=== PATIENT | male | born 1990 | race Caucasian/White ===

== ENCOUNTER 2016-03-25 13:25 | Emergency (ER) | payer MEDICAID ==
[~2016-03-25] VITALS: Ht 172.7 cm; Wt 97.5 kg
[2016-03-25 13:31] VITALS: BP 166/97
--- NOTE | 2016-03-25 14:16 | NUR ---
PT TO BED 5 AT THIS TIME,
--- NOTE | 2016-03-25 14:26 | NUR ---
PATIENT PRESENTS TO ED WITH ANXIETY . PT STATES HE BEGAN FEELING SOB X1WEEK AGO AFTER TRYING COCAINE WITH MARIJUANA. PT REPORTS FEELING INTERMITTENT TINGLING IN LEFT SHOULDER. PT STATED HE VISITED [facility] X2DAYS AGO AND WAS DX WITH ANXIETY AND GIVEN ATIVAN BUT HAS SINCE RAN OUT AND TOOK HIS MOMS DEPRESSION MEDICATION (M22) WHICH ONLY MADE HIS SYMPTOMS WORSE. PT STATES THE ATIVAN RELIEVED HIS SYMPTOMS AND SYMPTOMS FEEL WORSENING WHEN DEEP BREATHING. NO MEDICAL HX REPORTED . DENIES N/V/D; SKIN IS PINK/WARM/DRY; AAOX4 WITH EVEN AND STEADY GAIT; LUNGS CLEAR BL; HR EVEN AND REGULAR; PT DENIES ANY FEVER, CP, OR COUGH AT THIS TIME; PATIENT STATES PAIN OF 0/10 AT THIS TIME; VSS; PATIENT POSITIONED FOR COMFORT; HOB ELEVATED; BEDRAILS UP X2; BED DOWN. ER MD MADE AWARE OF PT STATUS.
[2016-03-25 15:26] VITALS: BP 144/88
== END 2016-03-25 15:27 | disposition home or self-care (01) ==
LOC: MED 13:25
DX: F41.9 Anxiety disorder, unspecified (principal); F14.10 Cocaine abuse, uncomplicated

== ENCOUNTER 2016-03-30 19:44 | Emergency (ER) | payer MEDICAID ==
[~2016-03-30] VITALS: Ht 172.7 cm; Wt 97.1 kg
[2016-03-30 19:48] VITALS: BP 159/95
--- NOTE | 2016-03-30 20:10 | NUR ---
PT SEEN BY IN OF2.
[2016-03-30] MEDS ORDERED: LORazepam 1 MG TAB PO ONE (20:45)
--- NOTE | 2016-03-30 20:55 | NUR ---
AMBULATED TO ER OF2
--- NOTE | 2016-03-30 20:57 | NUR ---
Barbara niño in [facility] - 03/30/16 at 2235 by MEDKLAUDIA Patient being evaluated by physician.
--- NOTE | 2016-03-30 21:45 | NUR ---
OK TO D/C PT PER MD
--- NOTE | 2016-03-30 21:53 | NUR ---
PATIENT PRESENTS TO ED WITH ANXIETY . PT DENIES N/V/D; SKIN IS PINK/WARM/DRY; AAOX4 WITH EVEN AND STEADY GAIT; LUNGS CLEAR BL; HR EVEN AND REGULAR; PT DENIES ANY FEVER, CP, SOB, OR COUGH AT THIS TIME; PATIENT STATES PAIN OF 0/10 AT THIS TIME; VSS; PATIENT POSITIONED FOR COMFORT; HOB ELEVATED; BEDRAILS UP X2; BED DOWN. ER MD MADE AWARE OF PT STATUS.
[2016-03-30 21:55] VITALS: BP 145/89
--- NOTE | 2016-03-30 21:58 | NUR ---
MED APPEARED TO GIVE AFTER PT DISCHARGED. MED NOT GIVEN, PT HAS RX FOR ATIVAN.
== END 2016-03-30 21:45 | disposition home or self-care (01) ==
LOC: MED 19:44
DX: F41.9 Anxiety disorder, unspecified (principal); R06.00 Dyspnea, unspecified

== ENCOUNTER 2016-04-02 08:54 | Emergency (ER) | payer MEDICAID ==
[~2016-04-02] VITALS: Ht 172.7 cm; Wt 97.1 kg
[2016-04-02 09:02] VITALS: BP 146/91
--- NOTE | 2016-04-02 09:13 | NUR ---
PT TO BED 6 AT THIS TIME
--- NOTE | 2016-04-02 09:15 | NUR ---
26/M C/O ANXIETYX 2 WKS. PT DENIES N/V/D; SKIN IS PINK/WARM/DRY; AAOX4 WITH EVEN AND STEADY GAIT; LUNGS CLEAR BL; HR EVEN AND REGULAR; PT DENIES ANY FEVER, CP, SOB, OR COUGH AT THIS TIME; PATIENT STATES PAIN OF 0/10 AT THIS TIME; VSS; PATIENT POSITIONED FOR COMFORT; HOB ELEVATED; BEDRAILS UP X2; BED DOWN. ER MD MADE AWARE OF PT STATUS.
--- NOTE | 2016-04-02 09:31 | NUR ---
Note [place] in EDM - 04/02/16 at 0936 by [facility] Patient discharged with v/s stable. Written and verbal after care instructions given and explained to parent/guardian. Parent/Guardian verbalized understanding. Carriedby parent. All questions addressed prior to discharge. Advised to follow up with PMD.
--- NOTE | 2016-04-02 10:17 | NUR ---
Patient appears to be resting comfortably in bed. Vital Signs within normal limits. Respirations even and unlabored. WILL CONTINUE TO MONITOR
--- NOTE | 2016-04-02 10:25 | NUR ---
DR COOLEY EVALUATING PT AT BEDSIDE
[2016-04-02 10:54] VITALS: BP 132/79
== END 2016-04-02 10:54 | disposition home or self-care (01) ==
LOC: MED 08:54
DX: F41.9 Anxiety disorder, unspecified (principal); I10 Essential (primary) hypertension

== ENCOUNTER 2018-03-05 13:55 | Emergency (ER) | payer MEDICAID ==
[~2018-03-05] VITALS: Ht 172.7 cm; Wt 102.1 kg
[2018-03-05 14:25] VITALS: BP 147/110
--- NOTE | 2018-03-05 15:00 | NUR ---
PATIENT AMBULATED TO ER BED 10
--- NOTE | 2018-03-05 15:05 | NUR ---
BIB SELF C/O ABSCESS X 5 DAYS. PT STATES HE NEED ABSCESS CLEAN OUT AND CHANGED. DENIES ANY OTHER SYMPTOMS AT THIS TIME. POSITIONED FOR COMFORT.
--- NOTE | 2018-03-05 15:15 | NUR ---
DR DUBOIS AT BEDSIDE.
--- NOTE | 2018-03-05 15:31 | NUR ---
Patient discharged with v/s stable. Written and verbal after care instructions given and explained. Patient verbalized understanding. Ambulatory with steady gait. All questions addressed prior to discharge. Advised to follow up with PMD.
[2018-03-05 15:34] VITALS: BP 147/110
== END 2018-03-05 15:31 | disposition home or self-care (01) ==
LOC: MED 13:55
DX: L02.11 Cutaneous abscess of neck (principal); I10 Essential (primary) hypertension; F41.9 Anxiety disorder, unspecified
CPT/HCPCS: 99283

== ENCOUNTER 2018-06-16 16:12 | Emergency (ER) | payer MEDICAID ==
[~2018-06-16] VITALS: Ht 172.7 cm; Wt 108.5 kg
[2018-06-16 16:20] VITALS: BP 143/75
--- NOTE | 2018-06-16 16:22 | NUR ---
PT AMBULATED TO ER BED 01
--- NOTE | 2018-06-16 16:29 | NUR ---
C/O ABSCESS ON LEFT UPPER THIGH. PATIENT STATES PAIN OF 7/10 AT THIS TIME. PATIENT POSITIONED FOR COMFORT; HOB ELEVATED; BEDRAILS UP X2; BED DOWN. ER MD MADE AWARE OF PT STATUS.
[2018-06-16] MEDS ORDERED: KETOROLAC 60 MG/2 ML VIAL IM ONE (17:10)
[2018-06-16] MEDS ORDERED: cefTRIAXone 1,000 MG in LIDOCAINE MPF 1% - 5 mL VIAL 2.1 ML IM ONE (18:25)
--- NOTE | 2018-06-16 18:47 | NUR ---
Patient discharged with v/s stable. Written and verbal after care instructions given and explained. Patient alert, oriented and verbalized understanding of instructions. Ambulatory with steady gait. All questions addressed prior to discharge. ID band removed. Patient advised to follow up with PMD. Rx of BACTRIM,KEFLEX,IBUPROFEN & NORCO given. Patient educated on indication of medication including possible reaction and side effects. Opportunity to ask questions provided and answered.
[2018-06-16 18:48] VITALS: BP 134/75
== END 2018-06-16 18:47 | disposition home or self-care (01) ==
LOC: MED 16:12
DX: L03.116 Cellulitis of left lower limb (principal); I10 Essential (primary) hypertension
CPT/HCPCS: 96372; 99283; J0696; J1885; J2001

== ENCOUNTER 2018-12-30 15:58 | Emergency (ER) | payer MEDICAID ==
[~2018-12-30] VITALS: Ht 172.7 cm; Wt 94.3 kg
[2018-12-30 16:09] VITALS: BP 132/77
--- NOTE | 2018-12-30 16:15 | NUR ---
PT AMBULATED TO BED 08
--- NOTE | 2018-12-30 16:29 | NUR ---
Patient taken to XRAY via wheelchair by tech.
[2018-12-30] MEDS ORDERED: ACETAMINOPHEN EXTRA STRENGTH 500 MG TAB PO ONE (16:30)
[2018-12-30] MEDS ORDERED: hydrOXYzine HCL 10 MG TAB PO ONE (16:30)
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
[2018-12-30 17:20] VITALS: BP 121/67
--- NOTE | 2018-12-30 17:20 | NUR ---
Patient discharged with v/s stable. Written and verbal after care instructions given and explained. Patient alert, oriented and verbalized understanding of instructions. Ambulatory with steady gait. All questions addressed prior to discharge. ID band removed. Patient advised to follow up with PMD. Rx of NAPROXEN AND ATARAX given. Patient educated on indication of medication including possible reaction and side effects. Opportunity to ask questions provided and answered.
== END 2018-12-30 17:20 | disposition home or self-care (01) ==
LOC: MED 15:58
DX: S46.812A Strain of other muscles, fascia and tendons at shoulder and upper arm level, left arm, initial encounter (principal); S20.20XA Contusion of thorax, unspecified, initial encounter; F17.210 Nicotine dependence, cigarettes, uncomplicated; F41.9 Anxiety disorder, unspecified; I10 Essential (primary) hypertension; V49.49XA Driver injured in collision with other motor vehicles in traffic accident, initial encounter; Y93.89 Activity, other specified; Y92.89 Other specified places as the place of occurrence of the external cause; Y99.8 Other external cause status
CPT/HCPCS: 71101; 99283; Q0092

== ENCOUNTER 2019-01-24 10:24 | Emergency (ER) | payer MEDICAID ==
[~2019-01-24] VITALS: Ht 172.7 cm; Wt 93.0 kg
[2019-01-24 10:29] VITALS: BP 159/91
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
--- NOTE | 2019-01-24 10:55 | NUR ---
X-Ray at bedside.
[2019-01-24 11:45] VITALS: BP 159/91
--- NOTE | 2019-01-24 11:45 | NUR ---
APPLIED SLING TO LEFT SHOULDER WITHOUT ANY ISSUES
--- NOTE | 2019-01-24 11:45 | NUR ---
Patient discharged with v/s stable. Written and verbal after care instructions given and explained. Patient alert, oriented and verbalized understanding of instructions. Ambulatory with steady gait. All questions addressed prior to discharge. ID band removed. Patient advised to follow up with PMD. Rx of BACITRACIN, MOTRIN, NORCO given. Patient educated on indication of medication including possible reaction and side effects. Opportunity to ask questions provided and answered.
== END 2019-01-24 11:45 | disposition home or self-care (01) ==
LOC: MED 10:24
DX: M25.512 Pain in left shoulder (principal); I10 Essential (primary) hypertension; F41.9 Anxiety disorder, unspecified
CPT/HCPCS: 73030; 99283

== ENCOUNTER 2019-04-12 15:12 | Emergency (ER) | payer MEDICAID ==
[~2019-04-12] VITALS: Ht 172.7 cm; Wt 102.1 kg
[2019-04-12 15:34] VITALS: BP 144/103
--- NOTE | 2019-04-12 15:41 | NUR ---
WAIT AT LOBBY.
[2019-04-12 20:20] VITALS: BP 144/103
--- NOTE | 2019-04-12 20:20 | NUR ---
PT WAS CALLED FROM LOBBY, NO ANSWER, LWBS
--- NOTE | 2019-04-12 20:20 | NUR ---
PATIENT LEFT WITHOUT BEING SEEN BY DR. HAWK. NO FURTHER CARE PROVIDED FOR PATIENT.
== END 2019-04-12 20:20 | disposition left against medical advice (07) ==
LOC: MED 15:12
DX: H57.13 Ocular pain, bilateral (principal); Z53.21 Procedure and treatment not carried out due to patient leaving prior to being seen by health care provider

== ENCOUNTER 2022-02-12 03:18 | Emergency (ER) | payer BC, MEDICAID ==
[~2022-02-12] VITALS: Ht 172.7 cm; Wt 102.1 kg
[2022-02-12 03:27] VITALS: BP 148/88
--- NOTE | 2022-02-12 05:47 | NUR ---
Dr. Rodney examining patient.
[2022-02-12] MEDS ORDERED: ATI.5 PO (05:49)
[2022-02-12] MEDS ORDERED: LORazepam 2 MG/ML VIAL IM ONE (05:50)
[2022-02-12 06:14] VITALS: BP 142/88
== END 2022-02-12 06:14 | disposition home or self-care (01) ==
LOC: MED 03:18
DX: F41.9 Anxiety disorder, unspecified (principal); I10 Essential (primary) hypertension; Z79.899 Other long term (current) drug therapy
CPT/HCPCS: 99283; J2060

== ENCOUNTER 2023-05-13 19:12 | Emergency (ER) | payer BC, MEDICAID ==
[~2023-05-13] VITALS: Ht 172.7 cm; Wt 104.3 kg
[~2023-05-13 19:12] MED LIST: ATI.5 PO
[2023-05-13 19:36] VITALS: BP 146/92; PULSE 103; RESP 18; TEMP 97.5; O2SAT 97
[2023-05-13] MEDS ORDERED: AMOX-999 PO (20:23)
[2023-05-13 20:31] VITALS: BP 135/82; PULSE 88; RESP 16; TEMP 98; O2SAT 99
== END 2023-05-13 20:31 | disposition home or self-care (01) ==
LOC: MED 19:12
DX: L03.012 Cellulitis of left finger (principal); Z79.899 Other long term (current) drug therapy
CPT/HCPCS: 99283